=== PATIENT | female | born 1980 | race Caucasian/White ===

== ENCOUNTER 2016-06-17 07:23 | Emergency (ER) | payer SELFPAY ==
[~2016-06-17] VITALS: Ht 162.6 cm; Wt 78.0 kg
[2016-06-17 07:32] VITALS: BP 148/87; PULSE 100; RESP 24; TEMP 98; O2SAT 94
[2016-06-17 07:33] VITALS: BP 98/63; PULSE 87; RESP 18; TEMP 98.1; O2SAT 100
[2016-06-17] MEDS ORDERED: ZOLO100T PO (07:59)
[2016-06-17] MEDS ORDERED: DIPH25CA PO (07:59)
[2016-06-17] MEDS ORDERED: BUPR150XL PO (07:59)
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
[2016-06-17 08:36] LABS: AUTOMATED NEUTROPHIL # 3.3 TH/MM3 (1.8-7.7); BASOPHIL % 0.3 % (0.0-2.0); EOSINOPHIL % 0.4 % (0.0-4.0); HEMATOCRIT 38.5 % (35.0-46.0); HEMO FLAGS DIFF FINAL; LYMPH % 28.6 % (9.0-44.0); LYMPHOCYTE # 1.5 TH/MM3 (1.0-4.8); MEAN CELL VOLUME 80.2 FL (80.0-100.0); MEAN CORPUSCULAR HEMOGLOBIN 28.3 PG (27.0-34.0); MEAN CORPUSCULAR HGB CONC 35.3 % (32.0-36.0); MONO % 7.5 % (0.0-8.0); NEUT % 63.2 % (16.0-70.0); PLATELET COUNT 321 TH/MM3 (150-450); RED BLOOD COUNT 4.81 MIL/MM3 (4.00-5.30); RED CELL DISTRIBUTION WIDTH 12.8 % (11.6-17.2); WHITE BLOOD COUNT 5.2 TH/MM3 (4.0-11.0)
[2016-06-17 08:54] LABS: ACETAMINOPHEN LESS THAN 2.0 MCG/ML (10.0-30.0); ALT (GPT) 11 U/L (10-53); ANION GAP 8 MEQ/L (5-15); AST (GOT) 18 U/L (15-37); BICARBONATE 23.7 MEQ/L (21.0-32.0); BLOOD UREA NITROGEN 8 MG/DL (7-18); CHLORIDE 106 MEQ/L (98-107); GLOMERULAR FILTRATION RATE 71 ML/MIN (>89); POTASSIUM 3.1 MEQ/L (3.5-5.1); SODIUM (NA) 138 MEQ/L (136-145)
[2016-06-17 08:54] LABS: BACTERIA, URINE FEW /hpf; BLOOD, URINE SMALL (NEG); GLUCOSE,URINE NEG (NEG); GRANULAR CAST, URINE 1 /lpf; HYALINE CAST, URINE 2 /lpf (RARE); KETONE, URINE 10 mg/dL (NEG); MUCUS URINE FEW /lpf (OCC); NITRITE,URINE NEG (NEG); PH, URINE 6.5 (5.0-8.5); SQUAMOUS EPITHELIAL CELL URINE 4 /hpf (0-5); TRANSITIONAL EPI CELLS, URINE <1 /hpf; URINE COLOR YELLOW (YELLW/STRAW)
[2016-06-17 08:58] LABS: ALKALINE PHOSPHATASE 76 U/L (45-117); BETA HCG QUANT LESS THAN 1 MIU/ML (0-5); TOTAL BILIRUBIN ADULT 0.5 MG/DL (0.2-1.0)
[2016-06-17 09:01] LABS: AMPHETAMINE, URINE NEG (NEG); BARBITURATES, URINE NEG (NEG); COCAINE, URINE NEG (NEG)
[2016-06-17 09:02] LABS: COMMENT (UR) CULT NOT INDICATED; CULTURE IF INDICATED CULT NOT INDICATED
[2016-06-17] MEDS ORDERED: POTASSIUM CHLORIDE 10 MEQ CONTROLLED RELEASE TAB PO ONE (09:15)
[2016-06-17] MEDS ORDERED: HALOPERIDOL LACTATE 5 MG/ML AMP IM ONE (10:15)
[2016-06-17] MEDS ORDERED: LORazepam 2 MG/ML VIAL IM ONE (10:15)
[2016-06-17 11:30] VITALS: BP 94/54; PULSE 100; RESP 17; O2SAT 97
[2016-06-17 12:00] VITALS: BP 107/54; PULSE 107; RESP 18; TEMP 98.1; O2SAT 100
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
== END 2016-06-17 19:41 | disposition home or self-care (01) ==
LOC: NEPC 07:23 → NEPJ 19:41
DX: F39 Unspecified mood [affective] disorder (principal); Z79.899 Other long term (current) drug therapy
CPT/HCPCS: 80053; 80307; 81001; 84702; 84703; 85025; 96372; 99285; J1630; J2060

== ENCOUNTER 2016-08-16 15:35 | Inpatient (IN) | payer OTHER ==
[~2016-08-16] VITALS: Ht 165.1 cm; Wt 75.4 kg
[~2016-08-16 15:35] MED LIST: BUPR150XL PO; DIPH25CA PO; ZOLO100T PO
[2016-08-16 15:37] VITALS: BP 139/95; PULSE 84; RESP 16; TEMP 98.6; O2SAT 98
[2016-08-16 16:26] VITALS: BP 121/60; PULSE 110; RESP 22; TEMP 98.2
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
[2016-08-16 17:42] VITALS: BP 171/101; PULSE 122; RESP 20; TEMP 98.6; O2SAT 98
[2016-08-16] MEDS ORDERED: LORazepam 2 MG/ML VIAL IM ONE (18:00)
[2016-08-16 22:00] VITALS: BP 119/60; PULSE 66; RESP 18; O2SAT 100
[2016-08-16] MEDS ORDERED: BENZTROPINE MESYLATE 1 MG TAB PO PRN (22:45)
[2016-08-16] MEDS ORDERED: hydrOXYzine HCL 50 MG TAB PO PRN (22:45)
[2016-08-16] MEDS ORDERED: diphenhydrAMINE HCL 50 MG/ML VIAL IM PRN (22:45)
[2016-08-16] MEDS ORDERED: ALUMINUM/MAGNESIUM/SIMETH 30 ML CUP PO PRN (22:45)
[2016-08-16] MEDS ORDERED: ACETAMINOPHEN 325 MG TAB PO PRN (22:45)
[2016-08-16] MEDS ORDERED: diphenhydrAMINE HCL 50 MG/ML VIAL - HS PRN IM (22:45)
[2016-08-16] MEDS ORDERED: traZODone HCL 50 MG TAB PO PRN (22:45)
[2016-08-16] MEDS ORDERED: LORazepam 2 MG/ML VIAL IM PRN (22:45)
[2016-08-16] MEDS ORDERED: MAGNESIUM HYDROXIDE SUSP 30 ML CUP PO PRN (22:45)
[2016-08-16] MEDS ORDERED: diphenhydrAMINE HCL 50 MG CAP PO PRN (22:45)
[2016-08-16] MEDS ORDERED: BENZTROPINE MESYLATE 2 MG/2 ML VIAL IM PRN (22:45)
[2016-08-17 01:06] VITALS: BP 140/93; PULSE 96; RESP 18; TEMP 96.9; O2SAT 99
[2016-08-17 06:01] VITALS: BP 115/64; PULSE 97; RESP 16; TEMP 96.8; O2SAT 100
[2016-08-17] MEDS ORDERED: HALOPERIDOL LACTATE 5 MG/ML AMP ONE (09:04)
[2016-08-17] MEDS ORDERED: HALOPERIDOL LACTATE 5 MG/ML AMP IM ONE (09:15)
[2016-08-17] MEDS ORDERED: LORazepam 2 MG/ML VIAL IM ONE (09:15)
[2016-08-17] MEDS ORDERED: diphenhydrAMINE HCL 50 MG/ML VIAL IM ONE (09:15)
--- NOTE | 2016-08-17 10:09 | HHI.HP ---
Provisional Diagnosis Admission Date Aug 16, 2016 at 22:19 [place] I. 1. Brief psychotic disorder Rule out psychosis due to a substance Rule out psychosis due to a general medical condition 2. Cannabis abuse [place] II. Deferred [place] V. GAF is 20 presently Certification of Person's Competence To Provide Express and Informed Consent I have personally examined Afshan Peacock , a person being served at [facility] on, Aug 17, 2016 10:08. Express and informed consent means consent voluntarily given in writing, by a competent person, after sufficient explanation and disclosure of the subject matter involved to enable the person to make a knowing and willful decision without any element of force, fraud, deceit, duress, or other form of constraint or coercion. This person is 18 years of age or older, is not now known to be incompetent to consent to treatment with a guardian advocate, and does not have a health care surrogate or proxy currently making medical treatment decisions. I have found this person to be one of the following: [] Competent to provide express and informed consent, as defined above, for voluntary admission to this facility and is competent to provide express and informed consent for treatment. He/she has the consistent capacity to make well reasoned, willful, and knowing decisions concerning his or her medical or mental health treatment. The person fully and consistently understands the purpose of the admission for examination/placement and is fully capable of personally exercising all rights assured [place] [x] Incompetent to provide express and informed consent to voluntary admission, and this is incompetent to provide express and informed consent to treatment. The person must be transferred to involuntary status and a petition for a guardian advocate filed with the Circuit Court. [] Refusing to provide express and informed consent to voluntary admission but is competent to provide express and informed consent for treatment. The person must be discharged or transferred to involuntary status. Form shall be completed within 24 hours of a person's arrival at the receiving facility and filed in the clinical record of each person: 1. Admitted on a voluntary basis 2. Permitted to provide express and informed consent to his/her own treatment 3. Allowed to transfer from involuntary to voluntary status 4. Prior to permitting a person to consent to his or her own treatment after having been previously found incompetent to consent to treatment. History of Present Illness Capacity: Lacks Capacity HPI Ms. Peacock is a 36-year-old female with a reported history of anxiety and depression who was brought to the emergency department by parents for altered mental status. She was placed under the Swan act by Dr. Turpin. She was recently admitted at [facility] and these records are available for my review. I note that workup was performed at [facility] including CT and MRI of the brain. Patient was also seen by neuropsychology, Dr. Murray, who gave diagnoses of major depressive disorder, recurrent severe without psychotic features and LA. Toxicology was performed at outside hospital, and this was positive for cannabinoids. Reviewing our own electronic medical record, I note that patient was seen in May of this year by nurse practitioner Ander in the ED for suspected substance-induced mood disorder. Patient seen and examined. Chart reviewed. Case discussed with nursing staff. Nursing staff has been in contact with the patient's who reports that the patient goes for 5 days without sleep and then crashes. Reportedly the patient has been more agitated and threatening to family lately. Nursing staff reports that since arrival on the inpatient unit, patient's behavior has been significantly disturbed. She is noted to have thrown herself down on the floor and when provided with a meal threw up her food and then played with the vomitus. Patient was medicated this morning with Haldol, Ativan and Benadryl ETO on my order. At the time of my evaluation the patient is more tranquil. She appears to be tolerating the ETO well without any motoric or other side effects besides mild sedation. She is able to provide a modest history. She says that she has been feeling "not right" for several months. She is influenced by some sort of "vibrations." She admits that she has not been sleeping well. She denies any auditory hallucinations but says that she has been experiencing visual hallucinations of "things that shouldn't be there" in particular "a weird figure." Patient endorses feelings of paranoia and possibly feelings of thought manipulation but no ideas of reference or grandiosity. She denies suicidal or homicidal ideation. She is unable to describe her current mood and her affect is somewhat blunted, I suspect as a consequence of the ETO. Psychiatric interview somewhat limited because of the effects of the ETO I suspect. Patient does complain of vague chest and abdominal pain. Past psychiatric history: The patient reports a history of anxiety and depression. She is reportedly prescribed antidepressant medications and documentation from [facility] suggests that this is Zoloft 200 mg and Wellbutrin 150 mg daily. Unclear if the patient has a history of psychiatric admissions. She denies a history of suicide attempts. Family history: Patient is unsure of her family psychiatric history. Chemical dependency history: Patient reports that she uses cannabis "as needed. " She also reportedly uses cannabidiol oil. She denies any use of synthetic substances such as K2/spice or flakka. She denies any cocaine, heroin/pain pill or other substance use. Social history: The patient is . She graduated from [employer]. 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 Social history is limited because of the patient's current mental status. Review of Systems ROS Limitations: Psychotic, Poor Historian Except as stated in HPI: all other systems reviewed are Neg Past Psych History Psychological trauma history No reported trauma history to [place] Violence risk - others (6 mos) Indeterminate. Patient is presently psychotic and unpredictable. Violence risk - self (6 mos) Indeterminate. Patient is presently psychotic and unpredictable. Substance Abuse History Drugs/Alcohol past 12 months See above Past Family Social History Coded Allergies: No Known Allergies (Unverified , 08/16/16) Past Medical History See electronic medical record Reported Medications Diphenhydramine 25 Mg Cap50 Mg PO HS PRN (INSOMNIA) Ref 0 06/17/16 Bupropion HCl ER 24 HR (Wellbutrin Xl 24 HR)150 Mg [id number] Mg PO DAILY Ref 0 06/17/16 Discontinued Reported Medications Sertraline (Zoloft)100 Mg [id number] Mg PO DAILY #30 TAB Ref 0 06/17/16 Current Medications Medications (Trade) Dose Ordered Sig/Ramin Route Start Time Stop Time Status Last Admin (Ativan) 1 mg Q6H PRN PO 08/16/16 22:45 (Ativan Inj) 1 mg Q6H PRN IM 08/16/16 22:45 (Atarax) 50 mg Q6H PRN PO 08/16/16 22:45 (Benadryl) 50 mg Q6H PRN PO 08/16/16 22:45 (Benadryl Inj) 50 mg Q6H PRN IM 08/16/16 22:45 (Cogentin) 1 mg Q12H PRN PO 08/16/16 22:45 (Cogentin Inj) 1 mg Q12H PRN IM 08/16/16 22:45 (Benadryl) 50 mg HS PRN PO 08/16/16 22:45 (Benadryl Inj) 50 mg HS PRN IM 08/16/16 22:45 (Desyrel) 50 mg HS PRN PO 08/16/16 22:45 (Tylenol) 650 mg Q4H PRN PO 08/16/16 22:45 (Milk Of Magnesia Liq) 30 ml DAILY PRN PO 08/16/16 22:45 (Mag-Al Plus Susp Liq) 30 ml Q6H PRN PO 08/16/16 22:45 Family History See above Social History See above Patient's Strengths (min. 2) In a monitored setting. Verbally fluent. Physical Exam Physical exam completed by ED provider. On my examination today, the patient appears to be well-nourished and well-developed and in no acute physical distress. No motoric abnormalities noted. Laboratories and vital signs reviewed: Vital Signs Vital Signs Date Time Temp Pulse Resp B/P Pulse Ox O2 Delivery O2 Flow Rate FiO2 08/17/16 06:01 96.8 97 16 115/64 100 08/16/16 22:00 Room Air Lab Results Laboratories from outside hospital reviewed: CBC unremarkable. CMP unremarkable. TSH within normal limits. T4 within normal limits. Vitamin B12 level within normal limits. test negative. Rheumatoid factor negative. Urinalysis fairly bland. Alcohol level undetectable. MRI of the brain was read as no acute abnormality but with mild cerebellar tonsillar ectopia not meeting criteria for Chiari malformation. Mental Status Examination Patient is in hospital gown. She is somewhat disheveled but maintaining basic hygiene. She is awake and alert and oriented to person at least. No motoric abnormalities noted. No signs of withdrawal noted. Speech is somewhat slowed. Language and fund of knowledge are difficult to assess because of current mental status. Focus and concentration seem scattered. Memory difficult to assess because of psychosis and current mental state. Patient unable to provide mood but affect is blunted. Thought process somewhat tangential. Paranoia and possible feelings of thought manipulation present. Endorses visual but not auditory hallucinations. Denies suicidal or homicidal ideation. Insight and judgment presently poor. Assessment & Plan Problem List: (1) Psychosis ICD Code: F29 (2) Cannabis abuse ICD Code: F12.10 Assessment & Plan This is a 36-year-old female with psychiatric history as detailed above admitted to the inpatient psychiatric unit under the Swan act. On my evaluation today, the patient presents with residual psychotic symptoms, although she is somewhat calmer having received a need to this morning. Prior to that, her behavior on the unit was quite disturbed. Differential diagnosis for presenting episode would include a drug-induced psychotic disorder, primary psychotic illness, although the age of onset would be somewhat late, mood disorder with psychotic features, or psychotic illness due to a general medical condition. Patient requires psychiatric hospitalization at this time for safety , observation and stabilization. Admit inpatient. Involuntary status. I've completed first opinion. Consult for second opinion. Request healthcare surrogate and guardian advocate. Consult the hospitalist for patient's vague complaints of abdominal and chest pain. Fall precautions. Check EKG for QTc. Check HIV, RPR, hepatitis panels. Check ammonia. We'll treat psychosis empirically with Zyprexa 5 mg at bedtime with plans to titrate to 10 mg over the weekend, and this would likewise cover if the patient were experiencing a bipolar episode with psychotic features. I will hold patient's antidepressants acutely as these would likely exacerbate the situation if this were a bipolar illness with psychotic features. Haldol as needed for psychotic agitation, Ativan as needed for anxiety, Cogentin as needed for EPS, Benadryl as needed for sleep. Vitals every shift. Counselor to see. Disposition planning. Estimated length of stay : 7-9 days. Discharge Planning Pending psychiatric stabilization Request HC Surrog/Guard Advoc?: Yes Problem Qualifiers (1) Psychosis: Qualified Code: F23 - Brief psychotic disorder Bonilla Galvez MD Aug 17, 2016 10:08
[2016-08-17] MEDS ORDERED: HALOPERIDOL 5 MG TAB PO PRN (11:00)
[2016-08-17] MEDS ORDERED: HALOPERIDOL LACTATE 5 MG/ML AMP IM PRN (11:00)
--- NOTE | 2016-08-17 15:17 | PD.CONS ---
Provisional Diagnosis Admission Date Aug 16, 2016 at 22:19 [place] I. 1. Brief psychotic disorder Rule out psychosis due to a substance Rule out psychosis due to a general medical condition 2. Cannabis abuse [place] II. Deferred [place] V. GAF is 20 presently History of Present Illness Service Psychiatry Consult Requested By Primary Care Physician No Primary Care Physician HPI Ms. Peacock is a 36-year-old female with a reported history of anxiety and depression who was brought to the emergency department by parents for altered mental status. She was placed under the Swan act by Dr. Turpin. She was recently admitted at [facility] and these records are available for my review. I note that workup was performed at [facility] including CT and MRI of the brain. Patient was also seen by neuropsychology, Dr. Murray, who gave diagnoses of major depressive disorder, recurrent severe without psychotic features and LA. Toxicology was performed at outside hospital, and this was positive for cannabinoids. Reviewing our own electronic medical record, I note that patient was seen in May of this year by nurse practitioner Ander in the ED for suspected substance-induced mood disorder. Patient seen and examined. Chart reviewed. Case discussed with nursing staff. Nursing staff has been in contact with the patient's who reports that the patient goes for 5 days without sleep and then crashes. Reportedly the patient has been more agitated and threatening to family lately. Nursing staff reports that since arrival on the inpatient unit, patient's behavior has been significantly disturbed. She is noted to have thrown herself down on the floor and when provided with a meal threw up her food and then played with the vomitus. Patient was medicated this morning with Haldol, Ativan and Benadryl ETO on my order. At the time of my evaluation the patient is more tranquil. She appears to be tolerating the ETO well without any motoric or other side effects besides mild sedation. She is able to provide a modest history. She says that she has been feeling "not right" for several months. She is influenced by some sort of "vibrations." She admits that she has not been sleeping well. She denies any auditory hallucinations but says that she has been experiencing visual hallucinations of "things that shouldn't be there" in particular "a weird figure." Patient endorses feelings of paranoia and possibly feelings of thought manipulation but no ideas of reference or grandiosity. She denies suicidal or homicidal ideation. She is unable to describe her current mood and her affect is somewhat blunted, I suspect as a consequence of the ETO. Psychiatric interview somewhat limited because of the effects of the ETO I suspect. Patient does complain of vague chest and abdominal pain. Past psychiatric history: The patient reports a history of anxiety and depression. She is reportedly prescribed antidepressant medications and documentation from [facility] suggests that this is Zoloft 200 mg and Wellbutrin 150 mg daily. Unclear if the patient has a history of psychiatric admissions. She denies a history of suicide attempts. Family history: Patient is unsure of her family psychiatric history. Chemical dependency history: Patient reports that she uses cannabis "as needed. " She also reportedly uses cannabidiol oil. She denies any use of synthetic substances such as K2/spice or flakka. She denies any cocaine, heroin/pain pill or other substance use. Social history: The patient is . She graduated from [employer]. 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 Social history is limited because of the patient's current mental status. 08/17/16 Above note dictated by reviewed and agreed with. Patient is 36- year-old female admitted to Dr. echeverria service under the Swan act. Patient seen by me in her room sedated after receiving ETO for [id number] behavior quite disorganized psychotic. Dr. echeverria signed first opinion petition supporting Swan act. I agree. Patient meets criteria for involuntary psychiatric hospitalization under the Swan act. Thus I will cosign second opinion petition supporting Swan act Past Family Social History Coded Allergies: No Known Allergies (Unverified , 08/16/16) Reported Medications Diphenhydramine 25 Mg Cap50 Mg PO HS PRN (INSOMNIA) Ref 0 06/17/16 Bupropion HCl ER 24 HR (Wellbutrin Xl 24 HR)150 Mg [id number] Mg PO DAILY Ref 0 06/17/16 Discontinued Reported Medications Sertraline (Zoloft)100 Mg Hcc552 Mg PO DAILY #30 TAB Ref 0 06/17/16 Current Medications Medications (Trade) Dose Ordered Sig/Ramin Route Start Time Stop Time Status Last Admin (Ativan) 1 mg Q6H PRN PO 08/16/16 22:45 (Ativan Inj) 1 mg Q6H PRN IM 08/16/16 22:45 (Cogentin) 1 mg Q12H PRN PO 08/16/16 22:45 (Cogentin Inj) 1 mg Q12H PRN IM 08/16/16 22:45 (Benadryl) 50 mg HS PRN PO 08/16/16 22:45 (Tylenol) 650 mg Q4H PRN PO 08/16/16 22:45 (Milk Of Magnesia Liq) 30 ml DAILY PRN PO 08/16/16 22:45 (Mag-Al Plus Susp Liq) 30 ml Q6H PRN PO 08/16/16 22:45 (Haldol) 5 mg Q6HR PRN PO 08/17/16 11:00 (Haldol Inj) 5 mg Q6H PRN IM 08/17/16 11:00 (ZyPREXA ZYDIS ODT) 5 mg Taper HS PO 08/17/16 21:00 08/29/16 20:59 Patient's Strengths (min. 2) In a monitored setting. Verbally fluent. Physical Exam Vital Signs Vital Signs Date Time Temp Pulse Resp B/P Pulse Ox O2 Delivery O2 Flow Rate FiO2 08/17/16 06:01 96.8 97 16 115/64 100 08/16/16 22:00 Room Air Mental Status Examination Patient sedated unable to do full mental status exam at this time due to sedation Appearance Disheveled in appearance Assessment & Plan Problem List: (1) Psychosis ICD Code: F29 (2) Cannabis abuse ICD Code: F12.10 Assessment & Plan Estimated LOS: days Request HC Surrog/Guard Advoc?: Yes Problem Qualifiers (1) Psychosis: Qualified Code: F23 - Brief psychotic disorder Alexei Edouard MD Aug 17, 2016 15:17
[2016-08-17 16:15] VITALS: BP 100/56; PULSE 81; RESP 18; TEMP 98.7; O2SAT 99
--- NOTE | 2016-08-17 16:18 | PD.CONS ---
[facility] Galvez Reason for Consult Medical management Primary Care Physician No Primary Care Physician Diagnoses: History of Present Illness The patient is a 36-year-old female with a past medical history of depression and PTSD who is presenting to the hospital following an episode of psychosis. The patient is unclear on what happened to get her to the hospital. Per nursing she was very agitated earlier and required several sedating medications. At this time she complains of chronic chest pain which has been going on for the past 2 years. She states is associated with palpitations that can take her breath away. She also describes chronic abdominal pain but is unable to specify what kind of abdominal pain. She says she does believe these pains are secondary to her fibromyalgia. She does endorse some constipation. She mentions that she has had shingles before and she is very concerned that she still has shingles in her body. She wants a stomach ultrasound. She says she needs to be reminded to eat and drink because her vision has been changed from her multiple eye surgeries and she needs to see the food and drink directly in front of her. She does not seem to remember much from her psychotic episode. She denied any desire to hurt herself. She says she has not tried to harm herself in the past. Review of Systems ROS Limitations: Clinical Condition, Psychotic, Poor Historian Except as stated in HPI: all other systems reviewed are Neg Past Family Social History Allergies: Coded Allergies: No Known Allergies (Unverified , 08/16/16) Past Medical History Fibromyalgia Depression/anxiety PTSD Shingles Exercise-induced asthma Multiple eye surgeries Active Ordered Medications Current Medications Medications (Trade) Dose Ordered Sig/Ramin Route Start Time Stop Time Status Last Admin (Ativan) 1 mg Q6H PRN PO 08/16/16 22:45 (Ativan Inj) 1 mg Q6H PRN IM 08/16/16 22:45 (Cogentin) 1 mg Q12H PRN PO 08/16/16 22:45 (Cogentin Inj) 1 mg Q12H PRN IM 08/16/16 22:45 (Benadryl) 50 mg HS PRN PO 08/16/16 22:45 (Tylenol) 650 mg Q4H PRN PO 08/16/16 22:45 (Milk Of Magnesia Liq) 30 ml DAILY PRN PO 08/16/16 22:45 (Mag-Al Plus Susp Liq) 30 ml Q6H PRN PO 08/16/16 22:45 (Haldol) 5 mg Q6HR PRN PO 08/17/16 11:00 (Haldol Inj) 5 mg Q6H PRN IM 08/17/16 11:00 (ZyPREXA ZYDIS ODT) 5 mg Taper HS PO 08/17/16 21:00 08/29/16 20:59 Family History PTSD Social History The patient smokes hemp oil daily. She drinks occasionally. She endorses smoking marijuana. Physical Exam Vital Signs Vital Signs Date Time Temp Pulse Resp B/P Pulse Ox O2 Delivery O2 Flow Rate FiO2 08/17/16 06:01 96.8 97 16 115/64 100 08/17/16 01:06 96.9 96 18 140/93 99 08/16/16 22:00 66 18 119/60 100 Room Air 08/16/16 17:42 98.6 122 20 171/101 98 Room Air 08/16/16 16:26 98.2 110 22 121/60 Room Air Physical Exam GENERAL: This is a well-nourished, well-developed patient, in no apparent distress. SKIN: No rashes, ecchymoses or lesions. Cool and dry. HEAD: Atraumatic. Normocephalic. No temporal or scalp tenderness. EYES: Pupils equal round and reactive. Extraocular motions intact. No scleral icterus. No injection or drainage. ENT: Nose without bleeding, purulent drainage or septal hematoma. Throat without erythema, tonsillar hypertrophy or exudate. Uvula midline. Airway patent. NECK: Trachea midline. No JVD or lymphadenopathy. Supple, nontender, no meningeal signs. CARDIOVASCULAR: Regular rate and rhythm without murmurs, gallops, or rubs. RESPIRATORY: Clear to auscultation. Breath sounds equal bilaterally. No wheezes , rales, or rhonchi. GASTROINTESTINAL: Abdomen soft, non-tender, nondistended. No hepato-splenomegaly , or palpable masses. No guarding. MUSCULOSKELETAL: Extremities without clubbing, cyanosis, or edema. No joint tenderness, effusion, or edema noted. NEUROLOGICAL: Awake and alert, slightly lethargic. Cranial nerves II through XII intact. Motor and sensory grossly within normal limits. Five out of 5 muscle strength in all muscle groups. Normal speech. PSYCH: Calm. Laboratory Laboratory Tests Test 08/17/16 11:32 Ammonia 48 Assessment and Plan Assessment and Plan Psychosis The pt has been prone to outbursts. Currently calm after receiving meds. - further management per psychiatry. Fibromyalgia The pt endorses chronic pains in her chest and stomach. She says her chest pain has been going on for two years. She believes it is s/t fibromyalgia. - pain control as needed. - Physical therapy if needed. Hyperammonemia Ammonia level elevated at 48. - continue to trend. - check LFTs. - hepatitis profile pending. HTN Appears situational. - clonidine as needed. PPx: Ambulation Discussed Condition With Pt, nurse Ivan Ochoa DO Aug 17, 2016 16:18
[2016-08-17] MEDS ORDERED: cloNIDine HCL 0.1 MG TAB PO PRN (17:00)
[2016-08-17 18:42] LABS: AUTOMATED NEUTROPHIL # 4.4 TH/MM3 (1.8-7.7); BASOPHIL % 0.2 % (0.0-2.0); EOSINOPHIL # 0.1 TH/MM3 (0-0.4); EOSINOPHIL % 1.1 % (0.0-4.0); HEMATOCRIT 41.2 % (35.0-46.0); HEMO FLAGS DIFF FINAL; LYMPH % 26.4 % (9.0-44.0); LYMPHOCYTE # 1.8 TH/MM3 (1.0-4.8); MEAN CELL VOLUME 83.7 FL (80.0-100.0); MEAN CORPUSCULAR HEMOGLOBIN 27.7 PG (27.0-34.0); MEAN CORPUSCULAR HGB CONC 33.1 % (32.0-36.0); NEUT % 64.3 % (16.0-70.0); PLATELET COUNT 295 TH/MM3 (150-450); RED BLOOD COUNT 4.92 MIL/MM3 (4.00-5.30); RED CELL DISTRIBUTION WIDTH 12.7 % (11.6-17.2); WHITE BLOOD COUNT 6.8 TH/MM3 (4.0-11.0)
[2016-08-17 18:54] LABS: PROTHROMBIN TIME - PATIENT 11.4 SEC (9.8-11.6)
[2016-08-17 19:00] LABS: ALT (GPT) 14 U/L (10-53)
[2016-08-17 19:03] LABS: ALKALINE PHOSPHATASE 75 U/L (45-117); TOTAL BILIRUBIN ADULT 0.5 MG/DL (0.2-1.0)
[2016-08-17 19:32] LABS: ANION GAP 8 MEQ/L (5-15); AST (GOT) 27 U/L (15-37); BICARBONATE 25.8 MEQ/L (21.0-32.0); BLOOD UREA NITROGEN 14 MG/DL (7-18); CHLORIDE 106 MEQ/L (98-107); GLOMERULAR FILTRATION RATE 53 ML/MIN (>89); SODIUM (NA) 140 MEQ/L (136-145)
[2016-08-17 19:41] LABS: POTASSIUM 3.4 MEQ/L (3.5-5.1)
[2016-08-17] MEDS: OLANZapine ODT 5 MG TAB PO SCH (20:52)
[2016-08-18 05:43] VITALS: BP 123/60; PULSE 91; RESP 16; TEMP 96.8; O2SAT 98
[2016-08-18] MEDS ORDERED: POTASSIUM CHLORIDE 10 MEQ CONTROLLED RELEASE TAB PO ONE (11:15)
--- NOTE | 2016-08-18 12:20 | EKG ---
Date Performed: 08/17/2016 Time Performed: 13:53:36 PTAGE: 36 years EKG: Sinus rhythm NONSPECIFIC T-WAVE ABNORMALITY BORDERLINE ECG NO PREVIOUS TRACING DOCTOR: Bonilla Patel Interpretating Date/Time 08/18/2016 12:16:16
--- NOTE | 2016-08-18 15:19 | HHI.PYPN ---
Subjective Remarks Pt seen and discussed with staff. Pt has been agitated on unit and required medication to maintain safety last night and earlier today. Staff state that pt is easily agitated and very suspicious of staff with disorganized behaviors. She is guarded and suspicious during interview with minimal engagement. She does state that sleep has been very poor prior to hospitalization and that she was experiencing racing thoughts and paranoia. No SI/HI Objective Alert: Yes [place]: Person, Place Mood: Depressed Affect: Flat Memory Intact: Comment (fair) Hallucinations: Auditory (appears internally preoccupied) Delusions: Yes Delusion Type: Paranoid Suicidal: Ideation (denies) Homicidal: Ideation (denies) Insight/Judgment poor Labs Test 08/17/16 17:54 White Blood Count 6.8 TH/MM3 Red Blood Count 4.92 MIL/MM3 Hemoglobin 13.6 GM/DL Hematocrit 41.2 % Mean Corpuscular Volume 83.7 FL Mean Corpuscular Hemoglobin 27.7 PG Mean Corpuscular Hemoglobin 33.1 % Concent Red Cell Distribution Width 12.7 % Platelet Count 295 TH/MM3 Mean Platelet Volume 7.3 FL Neutrophils (%) (Auto) 64.3 % Lymphocytes (%) (Auto) 26.4 % Monocytes (%) (Auto) 8.0 % Eosinophils (%) (Auto) 1.1 % Basophils (%) (Auto) 0.2 % Neutrophils # (Auto) 4.4 TH/MM3 Lymphocytes # (Auto) 1.8 TH/MM3 Monocytes # (Auto) 0.5 TH/MM3 Eosinophils # (Auto) 0.1 TH/MM3 Basophils # (Auto) 0.0 TH/MM3 CBC Comment DIFF FINAL Differential Comment Prothrombin Time 11.4 SEC Prothromb Time International 1.0 RATIO Ratio Sodium Level 140 MEQ/L Potassium Level 3.4 MEQ/L Chloride Level 106 MEQ/L Carbon Dioxide Level 25.8 MEQ/L Anion Gap 8 MEQ/L Blood Urea Nitrogen 14 MG/DL Creatinine 1.16 MG/DL Estimat Glomerular Filtration 53 ML/MIN Rate Random Glucose 115 MG/DL Calcium Level 9.2 MG/DL Total Bilirubin 0.5 MG/DL Aspartate Amino Transf 27 U/L (AST/SGOT) Alanine Aminotransferase 14 U/L (ALT/SGPT) Alkaline Phosphatase 75 U/L Total Protein 7.3 GM/DL Albumin 3.6 GM/DL Vitals/IOs Vital Signs Date Time Temp Pulse Resp B/P Pulse Ox O2 Delivery O2 Flow Rate FiO2 08/18/16 05:43 96.8 91 16 123/60 98 08/16/16 22:00 Room Air Assessment & Plan Problem List: (1) Psychosis ICD Code: F29 (2) Cannabis abuse ICD Code: F12.10 Assessment & Plan Continue current tx plan. R/O bipolar disorder Estimated LOS: days Justification for Cont. Inpt. impairments in safety and reality testing Request HC Surrog/Guard Advoc?: Yes Problem Qualifiers (1) Psychosis: Qualified Code: F23 - Brief psychotic disorder Sonali Rodriguez MD Aug 18, 2016 15:19
[2016-08-18 17:59] VITALS: BP 93/52; PULSE 75; RESP 16; TEMP 98.4; O2SAT 98
[2016-08-18 19:15] VITALS: BP 114/74; PULSE 94; RESP 20; TEMP 98.4
[2016-08-18] MEDS: LORazepam 1 MG TAB PO PRN (19:23)
[2016-08-18] MEDS: OLANZapine ODT 5 MG TAB PO SCH (21:08)
[2016-08-18] MEDS: diphenhydrAMINE HCL 50 MG CAP - HS PRN PO (21:48)
[2016-08-19 06:03] VITALS: BP 101/54; PULSE 77; RESP 16; TEMP 97.8; O2SAT 100
[2016-08-19 08:02] LABS: BICARBONATE 25.1 MEQ/L (21.0-32.0); POTASSIUM 3.8 MEQ/L (3.5-5.1)
[2016-08-19] MEDS: LACTULOSE SYRUP 20 GM/30 ML CUP PO SCH (09:00)
[2016-08-19] MEDS: LORazepam 1 MG TAB PO PRN ×2 (09:04→21:07)
--- NOTE | 2016-08-19 12:34 | HHI.PR ---
Subjective Remarks Up on patient with a history of psychosis, depression, PTSD and chronic chest pain. Patient seen and examined today. She reports 3 episodes of chest pain with palpitations that took her breath away. She does admit that they seem to occur when she becomes upset or more anxious. This has gone on for years. She is asymptomatic at present. She states she had an uncle that had a four-vessel CABG. She also states she's had frequent episodes of choking while eating. She denies any difficulty swallowing liquids but states specifically she has problems with hash browns and barclay. At the end of our talk, patient became very upset and tearful wanting to know why she can't go home. Objective Vitals Vital Signs Date Time Temp Pulse Resp B/P Pulse Ox O2 Delivery O2 Flow Rate FiO2 08/19/16 06:03 97.8 77 16 101/54 100 08/18/16 19:15 98.4 94 20 114/74 08/18/16 17:59 98.4 75 16 93/52 98 Result Diagram: 08/17/16 1754 08/19/16 0725 Objective Remarks GENERAL: This is a well-nourished, well-developed patient, in no apparent distress. Awake and alert. SKIN: No rashes, ecchymoses or lesions. Cool and dry. HEENT: Atraumatic. Normocephalic. EOMI. MMM. CARDIOVASCULAR: Regular rate and rhythm without murmurs, gallops, or rubs. RESPIRATORY: Clear to auscultation. Breath sounds equal bilaterally. No wheezes , rales, or rhonchi. GASTROINTESTINAL: Abdomen soft, non-tender, nondistended. No hepato-splenomegaly , or palpable masses. No guarding. MUSCULOSKELETAL: Extremities without clubbing, cyanosis, or edema. No joint tenderness, effusion, or edema noted. NEUROLOGICAL: Awake and alert. Able to move all extremities. No focal neurologic findings appreciated. Normal speech. PSYCH: Anxious, tearful. Medications and IVs Current Medications Medications (Trade) Dose Ordered Sig/Ramin Route Start Time Stop Time Status Last Admin (Ativan) 1 mg Q6H PRN PO 08/16/16 22:45 08/19/16 09:04 (Ativan Inj) 1 mg Q6H PRN IM 08/16/16 22:45 08/18/16 08:39 (Cogentin) 1 mg Q12H PRN PO 08/16/16 22:45 (Cogentin Inj) 1 mg Q12H PRN IM 08/16/16 22:45 08/18/16 08:38 (Benadryl) 50 mg HS PRN PO 08/16/16 22:45 08/18/16 21:48 (Tylenol) 650 mg Q4H PRN PO 08/16/16 22:45 (Milk Of Magnesia Liq) 30 ml DAILY PRN PO 08/16/16 22:45 (Mag-Al Plus Susp Liq) 30 ml Q6H PRN PO 08/16/16 22:45 08/18/16 21:48 (Haldol) 5 mg Q6HR PRN PO 08/17/16 11:00 (Haldol Inj) 5 mg Q6H PRN IM 08/17/16 11:00 08/18/16 08:38 (ZyPREXA ZYDIS ODT) 5 mg Taper HS PO 08/17/16 21:00 08/29/16 20:59 08/18/16 21:08 (Catapres) 0.1 mg Q6H PRN PO 08/17/16 17:00 (Lactulose Liq) 30 ml DAILY PO 08/18/16 18:00 08/19/16 09:00 A/P Assessment and Plan 36yo female with history of depression and PTSD admitted due to acute episode of psychosis. Patient complaining of chronic chest and abdominal pain. Hospitalist services consulted for medical management. Psychosis The pt has been prone to outbursts. Currently calm after receiving meds. - further management per psychiatry. Fibromyalgia The pt endorses chronic pains in her chest and stomach. She says her chest pain has been going on for two years. She believes it is s/t fibromyalgia. Also may be related to anxiety. - pain control as needed. - Physical therapy if needed. Complaints of dysphagia - Swallowing evaluation ordered - Will follow up on results Hyperammonemia Ammonia level trending down 48 --> 44 - LFTs within normal limits. - hepatitis profile pending. HTN Appears situational. - clonidine as needed. DVT prophylaxis - Patient is ambulatory Discussed with patient and Sarah Mullen Aug 19, 2016 12:34 Sarah Tony Aug 19, 2016 12:34
--- NOTE | 2016-08-19 12:56 | HHI.PYPN ---
Subjective Remarks Pt seen and discussed with staff. She was agitated last night and was given oral ativan which calmed pt. She has been calmer and less agitated today, but mood remains labile. Pt is very tearful and states that she doesn't understand what is happening because people keep telling her that she passed the test but she is not moving up. She states that she is afraid because she can't see the "time machine" (clock) easily and is afraid that she has missed multiple groups and outings (she has attended all of them today). She states that she just wants to feel normal again. She reports that racing thoughts are present but less impairing and she feels less paranoid. Tolerating olanzapine without side effects. No SI/HI Objective Alert: Yes [place]: Person, Place Mood: Depressed Affect: Labile, Flat Memory Intact: Comment (fair) Hallucinations: Auditory (appears internally preoccupied) Delusions: Yes Delusion Type: Paranoid Suicidal: Ideation (denies) Homicidal: Ideation (denies) Insight/Judgment limited Labs Test 08/19/16 07:25 Sodium Level 138 MEQ/L Potassium Level 3.8 MEQ/L Chloride Level 105 MEQ/L Carbon Dioxide Level 25.1 MEQ/L Anion Gap 8 MEQ/L Blood Urea Nitrogen 12 MG/DL Creatinine 0.79 MG/DL Estimat Glomerular Filtration 83 ML/MIN Rate Random Glucose 81 MG/DL Calcium Level 8.7 MG/DL Ammonia 44 MCMOL/L Vitals/IOs Vital Signs Date Time Temp Pulse Resp B/P Pulse Ox O2 Delivery O2 Flow Rate FiO2 08/19/16 06:03 97.8 77 16 101/54 100 08/16/16 22:00 Room Air Assessment & Plan Problem List: (1) Psychosis ICD Code: F29 (2) Cannabis abuse ICD Code: F12.10 Assessment & Plan Continue current tx plan. Justification for Cont. Inpt. psychosis Request HC Surrog/Guard Advoc?: Yes Problem Qualifiers (1) Psychosis: Qualified Code: F23 - Brief psychotic disorder Soanli Rodriguez MD Aug 19, 2016 12:56
[2016-08-19] MEDS ORDERED: [UNRECOGNIZED DRUG - OTHER] (15:45)
[2016-08-19] MEDS: OLANZapine ODT 5 MG TAB PO SCH (21:08)
[2016-08-19] MEDS: diphenhydrAMINE HCL 50 MG CAP - HS PRN PO ×2 (21:08→23:19)
[2016-08-20 06:12] VITALS: BP 121/66; PULSE 70; RESP 18; TEMP 97.4; O2SAT 99
[2016-08-20] MEDS: LORazepam 1 MG TAB PO PRN (08:23)
[2016-08-20] MEDS: LACTULOSE SYRUP 20 GM/30 ML CUP PO SCH (08:23)
[2016-08-20] MEDS ORDERED: ZYPR10TA PO (10:13)
--- NOTE | 2016-08-20 10:13 | HHI.DS ---
Psychiatry Discharge Summary Inpatient Psychiatric care?: Yes Advance Directive: No Reason Not Provided: Due to Patient Condition Mental Health AdvanceDirective: No Health Care Proxy: No Admission Admission Date Aug 16, 2016 at 22:19 Admission Diagnosis: (1) Psychosis ICD Code: F29 (2) Cannabis abuse ICD Code: F12.10 Brief History Ms. Peacock is a 36-year-old female with a reported history of anxiety and depression who was brought to the emergency department by parents for altered mental status. She was placed under the Swan act by Dr. Turpin. She was recently admitted at [facility] and these records are available for my review. I note that workup was performed at [facility] including CT and MRI of the brain. Patient was also seen by neuropsychology, Dr. Murray, who gave diagnoses of major depressive disorder, recurrent severe without psychotic features and LA. Toxicology was performed at outside hospital, and this was positive for cannabinoids. Reviewing our own electronic medical record, I note that patient was seen in May of this year by nurse practitioner Ander in the ED for suspected substance-induced mood disorder. Patient seen and examined. Chart reviewed. Case discussed with nursing staff. Nursing staff has been in contact with the patient's who reports that the patient goes for 5 days without sleep and then crashes. Reportedly the patient has been more agitated and threatening to family lately. Nursing staff reports that since arrival on the inpatient unit, patient's behavior has been significantly disturbed. She is noted to have thrown herself down on the floor and when provided with a meal threw up her food and then played with the vomitus. Patient was medicated this morning with Haldol, Ativan and Benadryl ETO on my order. At the time of my evaluation the patient is more tranquil. She appears to be tolerating the ETO well without any motoric or other side effects besides mild sedation. She is able to provide a modest history. She says that she has been feeling "not right" for several months. She is influenced by some sort of "vibrations." She admits that she has not been sleeping well. She denies any auditory hallucinations but says that she has been experiencing visual hallucinations of "things that shouldn't be there" in particular "a weird figure." Patient endorses feelings of paranoia and possibly feelings of thought manipulation but no ideas of reference or grandiosity. She denies suicidal or homicidal ideation. She is unable to describe her current mood and her affect is somewhat blunted, I suspect as a consequence of the ETO. Psychiatric interview somewhat limited because of the effects of the ETO I suspect. Patient does complain of vague chest and abdominal pain. Past psychiatric history: The patient reports a history of anxiety and depression. She is reportedly prescribed antidepressant medications and documentation from [facility] suggests that this is Zoloft 200 mg and Wellbutrin 150 mg daily. Unclear if the patient has a history of psychiatric admissions. She denies a history of suicide attempts. Family history: Patient is unsure of her family psychiatric history. Chemical dependency history: Patient reports that she uses cannabis "as needed. " She also reportedly uses cannabidiol oil. She denies any use of synthetic substances such as K2/spice or flakka. She denies any cocaine, heroin/pain pill or other substance use. Social history: The patient is . She graduated from [employer]. 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 Social history is limited because of the patient's current mental status. 08/17/16 Above note dictated by reviewed and agreed with. Patient is 36- year-old female admitted to Dr. galvez service under the Swan act. Patient seen by me in her room sedated after receiving ETO for ani-zz-[id number] behavior quite disorganized psychotic. Dr. galvez signed first opinion petition supporting Swan act. I agree. Patient meets criteria for involuntary psychiatric hospitalization under the Swan act. Thus I will cosign second opinion petition supporting Swan act Tobacco Use In Past 30 Days: Refused To Answer Alcohol Use: Never Hospital Course Patient was admitted to a locked, inpatient psychiatric unit. A general medical consultation was obtained. Appropriate precautions were in place throughout patient's hospital stay. Patient was seen and examined daily on the unit by psychiatry and also visited by counselor. Psychotropic medications were adjusted. Patient tolerated medication changes well without side effects. Patient had significant improvement in her presenting psychiatric symptomatology during the course of her hospital stay. In particular, the patient's presenting psychosis resolved. Patient's behavior improved with the benefit of psychopharmacologic treatment. There is no evidence of any suicidality or homicidality on the inpatient unit. Charting indicates that the patient has been sleeping and eating well. On the day of discharge: Patient seen and examined with counselor and nurse. Chart reviewed. Case discussed with nursing staff reports that the patient has been pleasant and cooperative and has not been any behavioral problem overnight. She is noted to be somewhat anxious. On my examination today, the patient is requesting discharge from the inpatient psychiatric unit. Her thought process is linear and logical today. She says that prior to admission she had started on a new brand of cannabidiol oil and also had smoked unfamiliar cannabis from a friend. She does admit that she had been experiencing visual hallucinations prior to admission but denies any audiovisual hallucinations now. I can elicit no delusional material. She denies any suicidal or homicidal ideation, intent or plan on direct questioning and contracts for safety. She describes her mood as "rn residential" and I can elicit no depressive or hypomanic/manic symptoms at this time. She does complain of some ongoing anxiety which is a prior to admission problem for her and is presently mild. Counselor has obtained collateral from the patient's family to the effect that the ongoing concerns for the patient are related to substance use. I have had an extensive discussion with the patient about the need to abstain from all substances of abuse including cannabis in its various forms, and the patient should consider chemical dependency evaluation and treatment on an outpatient basis. Weighing the acute, chronic, and protective factors and based on the available evidence, I geophysicist to a reasonable degree of medical certainty that the patient is at low imminent risk of harm to self or others from a mental illness as defined under the Swan act and her level of function is adequate for outpatient care. Consequently, the patient no longer meets criteria for involuntary psychiatric hospitalization. I have recommended that she remain on the unit for further observation and have offered to transfer her to a lower acuity unit that may be more comfortable for her. However, the patient is declining ongoing admission and requesting discharge from the hospital today. I have no basis to retain her involuntarily at this time and so must arrange for her discharge today with psychiatric follow-up as arranged by counselor. Patient is also to follow-up with primary care. I counseled the patient regarding warning signs for need to return to the psychiatric emergency room as part of the general safety plan. Results Blood Pressure 121 / 66 Vital Signs Date Time Temp Pulse Resp B/P Pulse Ox O2 Delivery O2 Flow Rate FiO2 6/26/17 06:12 97.4 70 18 121/66 99 08/16/16 22:00 Room Air Laboratory Tests Test 08/17/16 08/17/16 08/19/16 11:32 17:54 07:25 Ammonia 48 MCMOL/L 44 MCMOL/L (11-32) (11-32) Potassium Level 3.4 MEQ/L (3.5-5.1) Creatinine 1.16 MG/DL (0.50-1.00) Estimat Glomerular Filtration 53 ML/MIN (>89) 83 ML/MIN (>89) Rate Random Glucose 115 MG/DL (74-106) Summary of Procedures None done Imaging None done Pending results at discharge: Yes (Hepatitis panel, RPR) Medications # of Antipsychotic meds at D/C: 1 Approp Antipsych med options 1 - Minimum of three failed multiple trials of monotherapy. 2 - Documented plan to taper to monotherapy due to previous use of multiple meds OR cross-taper in progress at D/C. 3 - Documentation of augmentation of Clozapine. 4 - Justification other than those listed in allowable values 1-3, document here : Discharge Discharge Date: Aug 20, 2016 Discharge Diagnosis: (1) Psychosis Diagnosis: Principal (resolved) ICD Code: F29 (2) Cannabis abuse Diagnosis: Secondary (counseled to quit) ICD Code: F12.10 GAF on discharge is 55 Mental Status Exam at Disch Patient is casually dressed. She is well groomed. She is awake and alert and oriented to person and hospital at least. No evidence of delirium. No abnormal motor movements noted. Speech is within normal limits for rate, tone and volume. Language and fund of knowledge seemed average. Focus and concentration intact. Memory grossly intact on clinical exam. Mood is good and affect is full and reactive. Thought process linear. No loosening of associations. No evident delusional material. Denies audiovisual hallucinations. Denies suicidal or homicidal ideation, intent or plan. Insight and judgment are fair at best. Pt Condition on Discharge: Stable Discharge Disposition: Discharge Home Discharge Instructions Diet Instructions: As Tolerated, No Restrictions Activities you can perform: Weight Bearing as Lai Scheduled Appointment: as per counselor's notes New Medications: Olanzapine (Zyprexa) 10 Mg Tab 10 MG PO HS Mental Health Days 15 Ref 1 TAB Discontinued Medications: Bupropion HCl ER 24 HR (Wellbutrin Xl 24 HR) 150 Mg Tab 150 MG PO DAILY Control Depression Ref 0 TAB Diphenhydramine (Diphenhydramine) 25 Mg Cap 50 MG PO HS PRN INSOMNIA Ref 0 CAP ([Hemp Oil Cbd]) PRN MILD ANXIETY Discharge Time <= 30 minutes Discharge/Advance Care Plan Health Problems: (1) Psychosis (2) Cannabis abuse Goals to promote your health * To prevent worsening of your condition and complications * To maintain your health at the optimal level Directions to meet your goals Take your medications as prescribed Follow your dietary instruction Follow activity as directed Keep your appointments as scheduled Take your immunizations and boosters as scheduled If your symptoms worsen call your PCP, if no PCP go to Urgent Care Center or Emergency Room For 17/09 questions related to your inpatient stay or results of tests pending at discharge, please contact Dr. Bonilla Galvez at Smoking is Dangerous to Your Health. Avoid second hand smoking Problem Qualifiers (1) Psychosis: Qualified Code: F23 - Brief psychotic disorder Bonilla Galvez MD Aug 20, 2016 10:13
[2016-08-20 14:45] LABS: RAPID PLASMA REAGIN SCREEN NON-REACTIVE (NON-REACTVE)
== END 2016-08-20 16:00 | disposition home or self-care (01) | DRG 885 ==
LOC: NEPJ 15:35 → NEDA 22:19 → H270 23:59
PROVIDERS: ADMIT Psychiatry & Neurology Psychiatry; ATTEND Psychiatry & Neurology Psychiatry
DX: F23 Brief psychotic disorder (principal); E72.20 Disorder of urea cycle metabolism, unspecified; R13.10 Dysphagia, unspecified; I10 Essential (primary) hypertension; F12.10 Cannabis abuse, uncomplicated; R07.9 Chest pain, unspecified; R10.9 Unspecified abdominal pain; G89.21 Chronic pain due to trauma; F41.1 Generalized anxiety disorder; F43.10 Post-traumatic stress disorder, unspecified; M79.7 Fibromyalgia; K59.00 Constipation, unspecified; Z82.49 Family history of ischemic heart disease and other diseases of the circulatory system
CPT/HCPCS: 80048; 80053; 80074; 82140; 85025; 85610; 86592; 86703; 93005; 96372; J0515; J1200; J1630; J2060; Q0163